=== PATIENT | female | born 1935 | race Caucasian/White ===

== ENCOUNTER 2016-11-18 14:12 | Emergency (ER) | payer MEDICARE ==
[2016-11-18] MEDS ORDERED: Ketorolac Tromethamine 30 MG/ML VIAL ONE (15:34)
[2016-11-18] MEDS ORDERED: Lorazepam 2 MG/ML VIAL ONE (15:35)
--- NOTE | 2016-11-18 15:38 | CT ---
CT LUMBAR SPINE WITHOUT CONTRAST: Date: 11/18/16 HISTORY: Right back pain for 3 days. Fell earlier today. Landed on buttocks. COMPARISON: MRI lumbar spine dated 02/01/16. FINDINGS: There is a new compression fracture of the anterior superior end plate and superior end plate throug h the vertebral body of L1. There is approximately 15% anterior height loss and 20% height loss of t he superior end plate. There is a linear lucency through the pedicle of L4 on the right indicating an acute fracture. This is nondisplaced. Severe levoscoliosis of the spine. There is cement within the T12 vertebral body. 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 Dense vascular calcifications of the aorta. No retroperitoneal adenopathy. Small calculus interpolar left renal collecting system. There is an old osteophyte fracture of the left SI joint. Bones are osteopenic/osteoporotic. Multiple posterior disc protrusions throughout the lumbar spine causing neural foraminal and spinal canal narrowing. IMPRESSION: 1. Acute L1 compression fracture involving the anterior superior end plate with extension throughou t the entire superior end plate with 10-15% height loss. 2. Fracture of the right L4 pedicle, series 3, image 69. This appears subacute. 3. Extensive spondylosis of the spine with moderate levoscoliosis. Dr. Haskins notified of the findings via telephone at 1519 hours. CODE CR. POS: [facility]
[2016-11-18 15:51] LABS: #Basophils 0.1 thou/uL (0.0-0.2); #Eosinphils 0.1 thou/uL (0.0-0.7); #Lymphocytes 1.3 thou/uL (1.20-3.40); %Basophils 0.6 % (0.0-1.0); %Eosinophils 0.8 % (0.0-10.0); %Monocytes 10.4 % (0.0-10.0); Hematocrit 33.4 % (36.0-47.0); Mean Platelet Volume 5.7 fL (7.4-10.4); White Blood Cell (WBC) Count 9.5 thou/uL (4.8-10.8)
[2016-11-18 15:58] LABS: Bilirubin Negative (Negative); Blood, Urine Negative (Negative); Glucose, Urine (Dipstick) Negative (Negative); Ketone, Urine Negative (Negative); Nitrite Negative (Negative); Protein, Urine (Dipstick) Negative (Neg-Trace)
[2016-11-18 16:01] LABS: Bacteria/HPF None Seen HPF (None Seen); Hyaline Casts/LPF 0-3 HYALINE CAST LPF (0-3 Hyaline); Squamous Epithelial 0-3 HPF (0-3); WBC/HPF 0-3 HPF (0-3)
[2016-11-18 16:13] LABS: ALT (SGPT) 15 U/L (8-55); AST (SGOT) 20 U/L (5-34); Alkaline Phosphatase 66 U/L (40-150); Anion Gap 11 mmol/L (10-20); BUN (Urea Nitrogen) 11 mg/dL (9.8-20.1); Bilirubin, Total 0.6 mg/dL (0.2-1.2); Calc. Creatinine Clearance 0 mL/min (70-130); Carbon Dioxide 29 mmol/L (23-31); Chloride 93 mmol/L (98-107); Estimated GFR-MDRD 90; Globulin 2.9 g/dL (2.4-3.5); Protein, Total 6.5 g/dL (6.0-8.3)
[2016-11-18] MEDS ORDERED: HYDROcodone/Acetaminophen 5/325 mg Tablet ONE (21:37)
== END 2016-11-18 21:58 ==
LOC: ERS 14:12
DX: S32.019A Unspecified fracture of first lumbar vertebra, initial encounter for closed fracture (principal); S32.049A Unspecified fracture of fourth lumbar vertebra, initial encounter for closed fracture; F41.9 Anxiety disorder, unspecified; Z87.891 Personal history of nicotine dependence; W18.30XA Fall on same level, unspecified, initial encounter
CPT/HCPCS: 36415; 72131; 80053; 81003; 81015; 85025; 96374; 96375; J1885; J2060

== ENCOUNTER 2017-03-03 15:14 | Outpatient (CLI) | payer MEDICARE ==
--- NOTE | 2017-03-03 18:27 | MRI ---
THORACIC SPINE MRI WITHOUT CONTRAST 03/03/17 COMPARISON: None. HISTORY: Compression fracture at T7, falls, pain. TECHNIQUE: Multiplanar and multisequence MR imaging of the thoracic spine is obtained without contrast. FINDINGS: At the T12 and L1 level, there are anterior edge/superior end plate fractures with internal T1 and T2 hypointensity, evidence of prior kyphoplasty. There is edema involving the T7 vertebral body, consistent with acute, subacute fracture. When compar ed to the adjacent vertebral body heights, there is approximately 50% loss of vertebral body height i nvolving the T7 fracture. No significant anterolisthesis of retrolisthesis is noted within the thorac ic spine. There is no evidence for an acute fracture involving the T1, T2, T3, T4, T5, or T6 vertebra l bodies. No acute fracture is seen involving T8, T9, T10, or T11. There is mild increased signal int ensity on STIR imaging within T12 and L1 which may be artifactual on the basis of prior kyphoplasty. C7-T1: Disc space narrowing and disc desiccation. Uncovertebral osteophyte formation noted on the lef t. No significant central canal stenosis. Mild left neural foraminal stenosis. T1-2: Disc desiccation and mild bilateral facet hypertrophy with no significant central canal stenosi s. Mild central disc protrusion. T2-3: Minimal disc bulge and mild bilateral facet hypertrophy with no significant central canal or ne ural foraminal stenosis. T3-4: Tiny central disc herniation. There is disc desiccation and disc space narrowing with no signif icant central canal or neural foraminal stenosis. T4-5: No central canal or neural foraminal stenosis. T5-6: No central canal or neural foraminal stenosis. T6-7: Small central disc protrusion. No significant central canal or neural foraminal stenosis. No significant retropulsion of osseous fragments into the central canal is noted involving the T7 fra cture. T7-8: Disc space narrowing and mild disc bulge present. No significant central canal stenosis. Mild b ilateral facet hypertrophy. No significant neural foraminal stenosis. T8-9: No significant central canal or neural foraminal stenosis. T9-10: Minimal central disc protrusion. No central canal or neural foraminal stenosis. T10-11: No central canal or neural foraminal stenosis. T11-12: There is a left paracentral/left foraminal disc protrusion with associated osteophyte formati on. This causes a moderate degree of left neural foraminal stenosis and a mild degree of central zak l stenosis in the left paracentral region. No right neural foraminal stenosis. T12-L1: There is disc space narrowing and disc desiccation with bilateral facet hypertrophy and mild left sided neural foraminal stenosis. No focal area of signal abnormality identified within the thoracic cord. IMPRESSION: 1. Acute/subacute fracture of the T7 vertebral body. 2. Fractures status post kyphoplasty at T12 and L1. 3. Areas of degenerative change noted within the thoracic spine as detailed above, the most sign ificant finding being left sided neural foraminal stenosis at T11-12. POS: [facility]
== END 2017-03-03 15:15 | disposition home or self-care (01) ==
LOC: SCSMRI 15:14
PROVIDERS: ATTEND Anesthesiology Pain Medicine
DX: S22.060G Wedge compression fracture of T7-T8 vertebra, subsequent encounter for fracture with delayed healing (principal); R06.02 Shortness of breath; M47.814 Spondylosis without myelopathy or radiculopathy, thoracic region; M99.52 Intervertebral disc stenosis of neural canal of thoracic region; Z98.890 Other specified postprocedural states
CPT/HCPCS: 72146

== ENCOUNTER 2017-03-30 04:53 | Emergency (ER) | payer MEDICARE ==
[2017-03-30] MEDS ORDERED: Ondansetron HCl/PF 4 MG/2 ML Vial ONE (05:55)
[2017-03-30] MEDS ORDERED: Cyclobenzaprine 10 MG TAB ONE (06:38)
[2017-03-30] MEDS ORDERED: Ketorolac Tromethamine 30 MG/ML VIAL ONE (06:38)
== END 2017-03-30 11:13 | disposition short-term general hospital (02) ==
LOC: ERS 04:53
DX: S32.502A Unspecified fracture of left pubis, initial encounter for closed fracture (principal); F32.9 Major depressive disorder, single episode, unspecified; I25.2 Old myocardial infarction; Z86.73 Personal history of transient ischemic attack (TIA), and cerebral infarction without residual deficits; Z87.891 Personal history of nicotine dependence; Z79.82 Long term (current) use of aspirin; W06.XXXA Fall from bed, initial encounter
CPT/HCPCS: 93005; 94760; 96361; 96374; 96375; J1885; J2270; J2405

== ENCOUNTER 2022-05-24 09:14 | Inpatient (IN) | payer MEDICARE ==
[2022-05-24] MEDS ORDERED: CEFAZOLIN 2 GM in Sodium Chloride 0.9% 100 ML IVPB SCH (10:15)
[2022-05-24 11:15] VITALS: BMI 21.1
[2022-05-24] MEDS ORDERED: CEFAZOLIN 2 GM VIAL ONE (11:53)
[2022-05-24] MEDS ORDERED: Sodium Chloride 0.9% 100 ML ONE (11:54)
[2022-05-24] MEDS ORDERED: fentaNYL PF 100 MCG/2 ML SYRINGE ONE (12:12)
[2022-05-24] MEDS ORDERED: Acetaminophen 325 MG TAB PO PRN (12:48)
[2022-05-24] MEDS ORDERED: Ipratropium/Albuterol 3 ML NEB NEB PRN (12:48)
[2022-05-24] MEDS ORDERED: Ondansetron PF 4 MG/2 ML Vial IVP PRN (12:48)
[2022-05-24] MEDS ORDERED: Ondansetron PF 4 MG/2 ML Vial ONE (12:51)
[2022-05-24] MEDS ORDERED: PROPOFOL 200 MG/20 ML VIAL ONE (12:51)
[2022-05-24] MEDS ORDERED: Dexamethasone 20 MG/5 ML VIAL ONE (12:51)
[2022-05-24] MEDS: Acetaminophen 325 MG TAB PO SCH ×2 (17:03→22:34)
[2022-05-24] MEDS: Acetaminophen/Codeine 30-300mg Tablet PO PRN ×2 (17:04→23:57)
[2022-05-24] MEDS: Sodium Chloride 0.9% 1,000 ML IV SCH ×2 (17:17→20:25)
[2022-05-24] MEDS: Morphine 2 MG/ML VIAL SLOW IVP PRN (19:09)
[2022-05-24] MEDS: CEFAZOLIN 2 GM in Sodium Chloride 0.9% 100 ML IVPB SCH (20:23)
[2022-05-24] MEDS: Famotidine 20 MG TAB PO SCH (20:23)
[2022-05-24] MEDS: Senokot S 8.6-50 MG TAB PO SCH (20:23)
[2022-05-25] MEDS ORDERED: ALPRAZolam 0.5 MG TAB PO PRN (00:33)
[2022-05-25] MEDS: Morphine 2 MG/ML VIAL SLOW IVP PRN ×2 (03:52→21:23)
[2022-05-25] MEDS: diphenhydrAMINE 25 MG CAP PO PRN ×3 (04:33→15:23)
[2022-05-25] MEDS: CEFAZOLIN 2 GM in Sodium Chloride 0.9% 100 ML IVPB SCH (04:33)
[2022-05-25] MEDS: Sodium Chloride 0.9% 1,000 ML IV SCH (05:42)
[2022-05-25] MEDS: Acetaminophen 325 MG TAB PO SCH ×4 (05:42→23:01)
[2022-05-25 07:09] LABS: #Eosinphils 0.2 thou/uL (0.0-0.7); #Lymphocytes 1.1 thou/uL (1.20-3.40); #Neutrophils 6.1 thou/uL (1.40-6.50); %Basophils 0.3 % (0.0-1.0); %Eosinophils 2.5 % (0.0-10.0); %Lymphocytes 12.8 % (21.0-51.0); %Monocytes 11.4 % (0.0-10.0); Hemoglobin 10.4 g/dL (12.0-16.0); Mean Corpuscular HGB CONC 32.8 g/dL (32.0-36.0); Mean Corpuscular Hemoglobin 32.2 pg (27.0-31.0); Mean Corpuscular Volume 98.3 fl (78.0-98.0); Mean Platelet Volume 5.9 fL (7.4-10.4); Platelet Count 348 10x3/uL (130-400); RBC Distribution Width 12.1 % (11.5-14.5); Red Blood Cell (RBC) Count 3.22 mill/uL (4.20-5.40); White Blood Cell (WBC) Count 8.3 10x3/uL (4.8-10.8)
[2022-05-25 07:20] LABS: PTT 28.3 sec (22.9-36.1); Prothrombin Time 13.4 sec (12.0-14.7)
[2022-05-25 07:34] LABS: Anion Gap 12 mmol/L (10-20); BUN (Urea Nitrogen) 5 mg/dL (9.8-20.1); Calc. Creatinine Clearance 41 mL/min (70-130); Calcium 8.4 mg/dL (7.8-10.44); Carbon Dioxide 22 mmol/L (23-31); Chloride 98 mmol/L (98-107); Estimated GFR 74; Glucose 99 mg/dL (83-110); Potassium 3.5 mmol/L (3.5-5.1); Sodium 128 mmol/L (136-145)
[2022-05-25] MEDS: Senokot S 8.6-50 MG TAB PO SCH ×2 (08:58→21:52)
[2022-05-25] MEDS: Aspirin 81 mg Enteric Coated Tablet PO SCH ×2 (08:58→20:21)
[2022-05-25] MEDS: Famotidine 20 MG TAB PO SCH ×2 (08:59→20:21)
[2022-05-25] MEDS: Polyethylene Glycol 3350 17 GM Packet PO SCH (08:59)
[2022-05-25] MEDS: Acetaminophen/Codeine 30-300mg Tablet PO SCH ×2 (10:19→16:24)
[2022-05-25] MEDS: Sodium Chloride 1 GM TAB PO SCH ×2 (15:13→20:21)
[2022-05-25] MEDS ORDERED: traMADol HCl 50 MG TAB PO PRN (16:45)
[2022-05-25] MEDS: traMADol HCl 50 MG TAB PO SCH ×2 (18:18→23:01)
[2022-05-25] MEDS: Latanoprost 0.005% Ophth Soln 2.5 ml Bottle EA EYE SCH (20:21)
[2022-05-25] MEDS: ALPRAZolam 0.25 MG TAB PO PRN (21:23)
[2022-05-26] MEDS: traMADol HCl 50 MG TAB PO SCH ×3 (05:04→18:10)
[2022-05-26] MEDS: Sodium Chloride 1 GM TAB PO SCH ×3 (05:04→20:50)
[2022-05-26] MEDS: Acetaminophen 325 MG TAB PO SCH ×3 (05:21→18:14)
[2022-05-26 09:06] LABS: #Basophils 0.1 thou/uL (0.0-0.2); #Eosinphils 0.5 thou/uL (0.0-0.7); #Lymphocytes 1.3 thou/uL (1.20-3.40); #Monocytes 1.3 thou/uL (0.11-0.59); #Neutrophils 9.5 thou/uL (1.40-6.50); %Basophils 0.4 % (0.0-1.0); %Eosinophils 3.8 % (0.0-10.0); %Lymphocytes 10.4 % (21.0-51.0); %Monocytes 10.5 % (0.0-10.0); %Neutrophils 74.8 % (42.0-75.0); Hemoglobin 10.3 g/dL (12.0-16.0); Mean Corpuscular HGB CONC 33.7 g/dL (32.0-36.0); Mean Corpuscular Hemoglobin 32.7 pg (27.0-31.0); Mean Corpuscular Volume 97.2 fl (78.0-98.0); Mean Platelet Volume 5.8 fL (7.4-10.4); Platelet Count 343 10x3/uL (130-400); RBC Distribution Width 12.1 % (11.5-14.5); Red Blood Cell (RBC) Count 3.15 mill/uL (4.20-5.40); White Blood Cell (WBC) Count 12.7 10x3/uL (4.8-10.8)
[2022-05-26] MEDS: Famotidine 20 MG TAB PO SCH (09:24)
[2022-05-26] MEDS: Aspirin 81 mg Enteric Coated Tablet PO SCH ×2 (09:24→20:50)
[2022-05-26] MEDS: Senokot S 8.6-50 MG TAB PO SCH ×2 (09:24→20:53)
[2022-05-26] MEDS: Polyethylene Glycol 3350 17 GM Packet PO SCH (09:25)
[2022-05-26 09:30] LABS: Anion Gap 13 mmol/L (10-20); BUN (Urea Nitrogen) 4 mg/dL (9.8-20.1); Calc. Creatinine Clearance 45 mL/min (70-130); Calcium 8.3 mg/dL (7.8-10.44); Carbon Dioxide 24 mmol/L (23-31); Chloride 96 mmol/L (98-107); Estimated GFR 85; Glucose 108 mg/dL (83-110); Magnesium 1.8 mg/dL (1.6-2.6); Phosphorus 2.5 mg/dL (2.3-4.7); Potassium 3.7 mmol/L (3.5-5.1); Sodium 129 mmol/L (136-145)
[2022-05-26] MEDS: Latanoprost 0.005% Ophth Soln 2.5 ml Bottle EA EYE SCH (21:02)
[2022-05-27] MEDS: traMADol HCl 50 MG TAB PO SCH ×5 (05:40→23:16)
[2022-05-27] MEDS: Acetaminophen 325 MG TAB PO SCH ×5 (05:41→23:16)
[2022-05-27] MEDS: Sodium Chloride 1 GM TAB PO SCH ×3 (05:41→21:07)
[2022-05-27 06:17] LABS: Anion Gap 10 mmol/L (10-20); BUN (Urea Nitrogen) 6 mg/dL (9.8-20.1); Calc. Creatinine Clearance 45 mL/min (70-130); Calcium 8.5 mg/dL (7.8-10.44); Carbon Dioxide 29 mmol/L (23-31); Chloride 95 mmol/L (98-107); Estimated GFR 85; Glucose 94 mg/dL (83-110); Magnesium 1.9 mg/dL (1.6-2.6); Phosphorus 2.6 mg/dL (2.3-4.7); Potassium 3.8 mmol/L (3.5-5.1); Sodium 130 mmol/L (136-145)
[2022-05-27 06:27] LABS: Band 1 % (5-11); Eosinophils 7 % (0-10); Hemoglobin 9.8 g/dL (12.0-16.0); Hypochromia SLIGHT = 6-15 cells (100X) (0-5/hpf); Lymphocytes 28 % (21-51); MDiff Complete? YES; Mean Corpuscular Hemoglobin 32.6 pg (27.0-31.0); Mean Corpuscular Volume 98.7 fl (78.0-98.0); Mean Platelet Volume 5.8 fL (7.4-10.4); Monocytes 1 % (0-10); Neutrophil 63 % (42-75); Platelet Count 339 10x3/uL (130-400); Platelet Morphology Comment Appears Adequate; Red Blood Cell (RBC) Count 3.02 mill/uL (4.20-5.40); White Blood Cell (WBC) Count 10.5 10x3/uL (4.8-10.8)
[2022-05-27] MEDS: Famotidine 20 MG TAB PO SCH (09:58)
[2022-05-27] MEDS: Polyethylene Glycol 3350 17 GM Packet PO SCH (09:58)
[2022-05-27] MEDS: Aspirin 81 mg Enteric Coated Tablet PO SCH ×2 (09:58→21:06)
[2022-05-27] MEDS: Senokot S 8.6-50 MG TAB PO SCH ×2 (09:58→21:07)
[2022-05-27] MEDS: ALPRAZolam 0.25 MG TAB PO PRN (13:02)
[2022-05-27] MEDS ORDERED: ALPRAZolam 0.5 MG TAB PO SCH (20:00)
[2022-05-27] MEDS: Latanoprost 0.005% Ophth Soln 2.5 ml Bottle EA EYE SCH (21:06)
[2022-05-28] MEDS ORDERED: traZODone HCl 50 MG TAB PO PRN (00:28)
[2022-05-28] MEDS ORDERED: Albuterol 200 PUFF (6.7GM INHALER) INH PRN (00:28)
[2022-05-28] MEDS: Acetaminophen 325 MG TAB PO SCH (05:13)
[2022-05-28] MEDS: Sodium Chloride 1 GM TAB PO SCH (05:14)
[2022-05-28] MEDS: traMADol HCl 50 MG TAB PO SCH (05:14)
[2022-05-28 05:42] LABS: Bacteria/HPF None Seen HPF (None Seen); Bilirubin Negative (Negative); Blood, Urine Negative (Negative); CAUTI Indications for Culture Dysuria,urgency,freq; Clarity Clear (Clear); Glucose, Urine (Dipstick) Normal (Negative); Ketone, Urine Negative (Negative); Leukocyte Negative Leu/uL (Negative); Nitrite Negative (Negative); Protein, Urine (Dipstick) 10 mg/dL (Neg-Trace); RBC/HPF 0-3 HPF (0-3); Specific Gravity, Urine 1.021 (1.002-1.036); Squamous Epithelial None Seen HPF (0-3); Urobilinogen Normal mg/dL (Less than 2); WBC/HPF 0-3 HPF (0-3)
[2022-05-28 05:43] LABS: Urine Culture Reflex No No
[2022-05-28] MEDS ORDERED: Levothyroxine Sodium 50 MCG TAB PO SCH (06:00)
[2022-05-28] MEDS ORDERED: Amiodarone 200 MG TAB PO SCH (09:00)
[2022-05-28] MEDS: Senokot S 8.6-50 MG TAB PO SCH (10:30)
[2022-05-28] MEDS: Famotidine 20 MG TAB PO SCH (10:30)
[2022-05-28] MEDS: Aspirin 81 mg Enteric Coated Tablet PO SCH (10:30)
[2022-05-28] MEDS: Polyethylene Glycol 3350 17 GM Packet PO SCH (10:31)
[2022-05-28 12:05] VITALS: BP 149/82; TEMP 98.7
== END 2022-05-28 15:20 | DRG 481 ==
LOC: SJJU 09:14
PROVIDERS: ADMIT Surgery; ATTEND Surgery
PROC: 0QS704Z Reposition Left Upper Femur with Internal Fixation Device, Open Approach (ICD-10-PCS; principal; 2022-05-24)
DX: S72.012A Unspecified intracapsular fracture of left femur, initial encounter for closed fracture (principal); E87.1 Hypo-osmolality and hyponatremia; I10 Essential (primary) hypertension; W19.XXXA Unspecified fall, initial encounter; F32.A Depression, unspecified; F41.9 Anxiety disorder, unspecified; E78.5 Hyperlipidemia, unspecified; J44.9 Chronic obstructive pulmonary disease, unspecified; I48.91 Unspecified atrial fibrillation; H54.7 Unspecified visual loss; H35.30 Unspecified macular degeneration; Y92.002 Bathroom of unspecified non-institutional (private) residence as the place of occurrence of the external cause; I25.2 Old myocardial infarction; Z86.73 Personal history of transient ischemic attack (TIA), and cerebral infarction without residual deficits; Z90.49 Acquired absence of other specified parts of digestive tract; Z90.710 Acquired absence of both cervix and uterus; Z98.890 Other specified postprocedural states; Z87.891 Personal history of nicotine dependence; Z86.718 Personal history of other venous thrombosis and embolism
CPT/HCPCS: 36415; 71045; 80048; 81001; 83735; 84100; 85025; 85610; 85730; 86850; 86900; 86901; C1713; C1769; J1100; J2272; J2405; J2704; J3490; J7050